=== PATIENT | female | born 1990 | race Caucasian/White ===

== ENCOUNTER 2017-12-28 18:54 | Emergency (ER) | payer OTHER ==
--- NOTE | 2017-12-28 20:11 | XRAY Report ---
EXAM: CHEST RADIOGRAPHY EXAM DATE: 12/28/2017 07:50 PM. CLINICAL HISTORY: Cough. COMPARISON: None. TECHNIQUE: 1 view. FINDINGS: Lungs/Pleura: No focal opacities evident. No pleural effusion. No pneumothorax. Mediastinum: Within exam limitations, the cardiomediastinal contour is normal. Other: No bony abnormality noted. IMPRESSION: Normal single view chest. [facility] Referring Provider Line: [phone] SITE ID: [id number]
[2017-12-28] MEDS ORDERED: cefTRIAXone 1 GM in SODIUM CHLORIDE 0.9% MINIBAG 100 ML IV STA (20:16)
[2017-12-28] MEDS ORDERED: SODIUM CHLORIDE 0.9% 1,000 ML IV ONE (20:16)
[2017-12-28] MEDS ORDERED: ACETAMINOPHEN 325 MG TABLET PO STA (20:16)
--- NOTE | 2017-12-28 20:22 | ED Physician Documentation ---
PD HPI URI - Stated complaint Stated Complaint: SOA/DIZZY - Chief complaint Chief Complaint: Resp - History obtained from History obtained from: Patient, Friend - History of Present Illness Timing - onset: How many weeks ago (1) Timing duration: Weeks (1) Timing details: Gradual onset, Still present Associated symptoms: Fever, Chills, Nasal congestion, Rhinorrhea, Dry cough Contributing factors: Sick contact (daughter sick with BOM) Improves by: Rest, Medication Worsened by: Activity Similar symptoms before: Has not had sx before Recently seen: Not recently seen - Additional information Additional information: 27-year-old female mother of a young 8-month-old daughter who has recently been diagnosed with otitis has developed a cough over the past week that is progressively worsened over the week and today she has developed acute fever and feels quite ill. Review of Systems Constitutional: reports: Fever, Chills, Fatigue Eyes: denies: Decreased vision Ears: denies: Ear pain Nose: reports: Rhinorrhea / runny nose, Congestion Throat: reports: Sore throat Cardiac: denies: Chest pain / pressure, Palpitations Respiratory: reports: Cough. denies: Dyspnea GI: denies: Vomiting Skin: denies: Rash Musculoskeletal: reports: Back pain. denies: Neck pain Neurologic: reports: Generalized weakness. denies: Focal weakness, Numbness PD PAST MEDICAL HISTORY - Past Medical History HAND HARDENER: Ovarian cysts, Other Psych: Depression, Anxiety - Past Surgical History Past Surgical History: Yes /HAND HARDENER: section - Present Medications Home Medications: Ambulatory Orders Medication Instructions Recorded Confirmed Azithromycin [Zithromax] 250 mg PO DAILY #6 tablet 12/28/17 - Allergies Allergies/Adverse Reactions: Allergies Allergy/AdvReac Type Severity Reaction Status Date / Time No Known Drug Allergies Allergy Verified 12/28/17 19:02 - Social History Does the pt smoke?: No Smoking Status: Never smoker Does the pt drink ETOH?: No Does the pt have substance abuse?: No - Immunizations Immunizations are current?: Yes - POLST Patient has POLST: No PD ED PE NORMAL - Vitals Vital signs reviewed: Yes (Febrile tachycardic and hypertensive as well as tachypneic.) - General General: Alert and oriented X 3, No acute distress, Well developed/nourished - HEENT HEENT: Atraumatic, PERRL, EOMI, Other (Right TM is mildly erythematous with retained landmarks left is clear the pharynx is benign) - Neck Neck: Supple, no meningeal sign, No bony TTP - Cardiac Cardiac: No murmur, No rub, Other - Respiratory Respiratory: No respiratory distress, Clear bilaterally - Abdomen Abdomen: Soft, Non tender - Back Back: No CVA TTP, No spinal TTP - Derm Derm: Normal color, Warm and dry, No rash - Extremities Extremities: No deformity, No edema - Neuro Neuro: No motor deficit, No sensory deficit Eye Opening: Spontaneous Motor: Obeys Commands Verbal: Oriented GCS Score: 15 - Psych Psych: Normal mood, Normal affect Results - Vitals Vitals: Vital Signs - 24 hr 12/28/17 12/28/17 18:59 22:00 Temperature 39.4 C H Heart Rate 142 H 120 H Respiratory 24 22 Rate Blood Pressure 134/75 H O2 Saturation 98 Oxygen O2 Source Room air - Labs Labs: Laboratory Tests 12/28/17 12/28/17 12/28/17 20:31 20:31 20:32 WBC 15.2 H RBC 4.78 Hgb 13.6 Hct 39.9 MCV 83.5 MCH 28.5 MCHC 34.1 RDW 13.0 Plt Count 239 MPV 7.1 L Neut # 13.3 H Lymph # 1.2 L [place] # 0.6 Eos # 0.1 Baso # 0.0 Absolute Nucleated RBC 0.01 Nucleated RBC % 0.0 Sodium 137 Potassium 3.5 Chloride 106 Carbon Dioxide 22 Anion Gap 9.0 BUN 13 Creatinine 0.7 Estimated GFR (MDRD) 99 Glucose 114 H Calcium 8.6 Total Bilirubin 0.2 AST 29 ALT 46 Alkaline Phosphatase 61 Total Protein 8.0 Albumin 4.1 Globulin 3.9 Albumin/Globulin Ratio 1.1 Lipase 26 Urine Color YELLOW Urine Clarity CLEAR Urine pH 7.0 Ur Specific [place] 1.020 Urine Protein NEGATIVE Urine Glucose (UA) NEGATIVE Urine Ketones NEGATIVE Urine Occult Blood NEGATIVE Urine Nitrite NEGATIVE Urine Bilirubin NEGATIVE Urine Urobilinogen 0.2 (NORMAL) Ur Leukocyte Esterase NEGATIVE Ur Microscopic Review NOT INDICATED Urine Culture Comments NOT INDICATED Urine HCG, Qual NEGATIVE Influenza A (Rapid) Influenza B (Rapid) Influenza Types A,B Ag 12/28/17 20:35 WBC RBC Hgb Hct MCV MCH MCHC RDW Plt Count MPV Neut # Lymph # [place] # Eos # Baso # Absolute Nucleated RBC Nucleated RBC % Sodium Potassium Chloride Carbon Dioxide Anion Gap BUN Creatinine Estimated GFR (MDRD) Glucose Calcium Total Bilirubin AST ALT Alkaline Phosphatase Total Protein Albumin Globulin Albumin/Globulin Ratio Lipase Urine Color Urine Clarity Urine pH Ur Specific [place] Urine Protein Urine Glucose (UA) Urine Ketones Urine Occult Blood Urine Nitrite Urine Bilirubin Urine Urobilinogen Ur Leukocyte Esterase Ur Microscopic Review Urine Culture Comments Urine HCG, Qual Influenza A (Rapid) Negative Influenza B (Rapid) Negative Influenza Types A,B Ag - - Rads (name of study) 1 view chest Radiology: Prelim report reviewed (Impression: Normal single view chest), EMP read indepedently (On my read the right base is a bit hazy.), See rad report Procedures - IVC sono (time) 1909 Bedside IVC sono: IVC measures (cm) (0.88), IVC collapsed c insp (cm) (complete) , Significant dehydration PD MEDICAL DECISION MAKING - ED course Complexity details: reviewed old records, reviewed results, re-evaluated patient , considered differential, d/w patient ED course: 27-year-old female with a febrile illness with cough and congestion has right otitis and now has developed high fever significant tachycardia and is significantly dehydrated. She is given intravenous saline and Rocephin. Departure - Departure Disposition: 01 Home, Self Care Clinical Impression: Dehydration Otitis media Qualifiers: Otitis media type: suppurative Chronicity: acute Laterality: right Recurrence: not specified as recurrent Spontaneous tympanic membrane rupture: without spontaneous rupture Qualified Code(s): H66.001 - Acute suppurative otitis media without spontaneous rupture of ear drum, right ear Condition: Stable Instructions: ED Otitis Media Acute Adult, ED Dehydration Follow-Up: [facility] [Provider Group] Prescriptions: Azithromycin [Zithromax] 250 mg PO DAILY #6 tablet
[2017-12-28 20:38] LABS: BASOPHILS % (AUTO) 0.2 %; EOSINOPHILS # (AUTO) 0.1 10^3/uL (0.0-0.7); EOSINOPHILS % (AUTO) 0.6 %; HGB - HEMOGLOBIN 13.6 g/dL (12.0-16.0); LYMPHOCYTES # (AUTO) 1.2 10^3/uL (1.5-3.5); MEAN CORPUSCULAR HEMOGLOBIN 28.5 pg (27.0-31.0); MEAN CORPUSCULAR HGB CONC 34.1 g/dL (32.0-36.0); MEAN CORPUSCULAR VOLUME 83.5 fL (81.0-99.0); MEAN PLATELET VOLUME 7.1 fL (7.9-10.8); MONOCYTES # (AUTO) 0.6 10^3/uL (0.0-1.0); MONOCYTES % (AUTO) 3.6 %; NEUTROPHILS # (AUTO) 13.3 10^3/uL (1.5-6.6); NEUTROPHILS % (AUTO) 87.6 %; PLT - PLATELET COUNT 239 10^3/uL (130-450); RED BLOOD COUNT 4.78 10^6/uL (4.20-5.40); WHITE BLOOD COUNT 15.2 x10^3/uL (4.8-10.8)
[2017-12-28 20:52] LABS: BILIRUBIN,URINE NEGATIVE (NEGATIVE); GLUCOSE, URINE (UA) NEGATIVE (NEGATIVE); KETONES,URINE (UA) NEGATIVE (NEGATIVE); LEUKOCYTE ESTERASE, URINE NEGATIVE (NEGATIVE); NITRITE,URINE NEGATIVE (NEGATIVE); OCCULT BLOOD,URINE NEGATIVE (NEGATIVE); PROTEIN,URINE NEGATIVE (NEGATIVE); UROBILINOGEN,URINE 0.2 (NORMAL) E.U./dL (NORMAL)
[2017-12-28 20:53] LABS: ALBUMIN 4.1 g/dL (3.2-5.5); ALBUMIN/GLOBULIN RATIO 1.1 (1.0-2.2); BILIRUBIN,TOTAL 0.2 mg/dL (0.2-1.0); CALCIUM 8.6 mg/dL (8.5-10.3); CREATININE 0.7 mg/dL (0.4-1.0)
[2017-12-28 20:56] LABS: CLARITY,URINE CLEAR (CLEAR); HCG UR QUAL NEGATIVE
[2017-12-28] MEDS ORDERED: IPRATROPIUM/ALBUTEROL 3 ML NEB INH STA (22:04)
[2017-12-28 23:16] VITALS: BP 142/77
== END 2017-12-28 23:29 | disposition home or self-care (01) ==
LOC: ED 18:54
DX: E86.0 Dehydration (principal); H66.001 Acute suppurative otitis media without spontaneous rupture of ear drum, right ear
CPT/HCPCS: 36415; 71045; 80053; 81003; 81025; 83690; 85025; 87275; 87276; 94640; 96361; 96365; 99283; 99284; A9270; 81001; 87086

== ENCOUNTER 2018-06-24 20:18 | Emergency (ER) | payer OTHER ==
[2018-06-24 20:25] VITALS: BP 151/91
[2018-06-24] MEDS ORDERED: IBUPROFEN 800 MG TABLET PO STA (20:56)
[2018-06-24] MEDS ORDERED: cephALEXin 250 MG CAPSULE PO STA (20:56)
--- NOTE | 2018-06-24 20:58 | ED Physician Documentation ---
History of Present Illness - Stated complaint Stated Complaint: FEVER - Chief complaint Chief Complaint: General - History obtained from History obtained from: Patient - History of Present Illness Timing: Today Pain level max: 5 Pain level now: 5 Improved by: nothing Worsened by: nothing - Additonal information Additional information: Patient is a 27-year-old female who presents to the emergency department with fever today. She is breast-feeding a [id number] child. Has pain and redness to the right breast. No vomiting. No abdominal pain also has had mild nasal congestion. No sore throat Review of Systems Constitutional: reports: Fever Respiratory: denies: Cough GI: denies: Vomiting, Diarrhea : denies: Now EGA Skin: denies: Rash Musculoskeletal: denies: Neck pain, Back pain PD PAST MEDICAL HISTORY - Past Medical History Cardiovascular: None Respiratory: None Neuro: None Endocrine/Autoimmune: None GI: None MANAGER APPLIED: Ovarian cysts, Other : None HEENT: None Psych: Depression, Anxiety Musculoskeletal: None Derm: None - Past Surgical History Past Surgical History: Yes /MANAGER APPLIED: section - Present Medications Home Medications: Ambulatory Orders Medication Instructions Recorded Confirmed Cephalexin [Keflex] 500 mg PO Q6H #40 capsule 06/24/18 Lactobacillus Acidophilus 1.5 mg PO DAILY #7 capsule 06/24/18 [Probiotic Acidophilus] - Allergies Allergies/Adverse Reactions: Allergies Allergy/AdvReac Type Severity Reaction Status Date / Time No Known Drug Allergies Allergy Verified 06/24/18 20:25 - Social History Does the pt smoke?: No Smoking Status: Never smoker Does the pt drink ETOH?: No Does the pt have substance abuse?: No - Immunizations Immunizations are current?: Yes - POLST Patient has POLST: No PD ED PE NORMAL - Vitals Vital signs reviewed: Yes - General General: Alert and oriented X 3, No acute distress - HEENT HEENT: Moist mucous membranes - Neck Neck: Supple, no meningeal sign - Cardiac Cardiac: RRR - Respiratory Respiratory: No respiratory distress, Clear bilaterally - Derm Derm: Warm and dry - Neuro Neuro: Alert and oriented X 3 - Free text exam Free text exam: R breast - mild redness, swelling, and tenderness. no mass. L breast normal. Results - Vitals Vitals: Vital Signs - 24 hr 06/24/18 20:22 Temperature 37.3 C Heart Rate 103 H Respiratory 16 Rate Blood Pressure 151/91 H O2 Saturation 99 Oxygen O2 Source Room air PD MEDICAL DECISION MAKING - ED course Complexity details: reviewed results, re-evaluated patient, considered differential, d/w patient, d/w family ED course: Patient is a 27-year-old female who presents to the emergency department with a right-sided mastitis. Will place on Keflex. Will have her follow-up with her PCP for further care. Also given Motrin here. Patient is well-appearing, nontoxic. Patient counseled regarding signs and symptoms for which I believe and urgent re-evaluation would be necessary. Patient with good understanding of and agreement to plan and is comfortable going home at this time This document was made in part using voice recognition software. While efforts are made to proofread this document, sound alike and grammatical errors may occur. - Sepsis Event Vital Signs: Vital Signs - 24 hr 06/24/18 20:22 Temperature 37.3 C Heart Rate 103 H Respiratory 16 Rate Blood Pressure 151/91 H O2 Saturation 99 Oxygen O2 Source Room air Departure - Departure Disposition: 01 Home, Self Care Clinical Impression: Mastitis Condition: Good Instructions: ED Breast Infec Follow-Up: [facility] [Primary Care Provider] - Prescriptions: Cephalexin [Keflex] 500 mg PO Q6H #40 capsule Lactobacillus Acidophilus [Probiotic Acidophilus] 1.5 mg PO DAILY #7 capsule Comments: Take all antibiotics until gone. Return if you worsen. This should improve over the next few days. You can use Motrin or Tylenol as needed for pain and fever Discharge Date/Time: 06/24/18 21:11
== END 2018-06-24 21:11 | disposition home or self-care (01) ==
LOC: ED 20:18
DX: N61.0 Mastitis without abscess (principal)
CPT/HCPCS: 99283; A9270

== ENCOUNTER 2018-11-08 09:38 | Emergency (ER) | payer OTHER ==
[2018-11-08 10:02] VITALS: BP 125/81
--- NOTE | 2018-11-08 10:46 | ED Physician Documentation ---
PD HPI URI - Stated complaint Stated Complaint: SORE THROAT - Chief complaint Chief Complaint: Heent - History obtained from History obtained from: Patient - History of Present Illness Timing - onset: Today Timing duration: Days (1) Timing details: Abrupt onset, Still present Associated symptoms: Sore throat. No: Fever, Swollen nodes Contributing factors: Sick contact (had been in contact with family that is yesterday Dx with strep throat.) Similar symptoms before: Has not had sx before Recently seen: Not recently seen Review of Systems Constitutional: denies: Fever Nose: denies: Rhinorrhea / runny nose, Congestion Throat: reports: Sore throat Respiratory: denies: Dyspnea GI: reports: Nausea (mild). 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: Ovarian cysts, Other : None HEENT: None Psych: Depression, Anxiety Musculoskeletal: None Derm: None - Past Surgical History Past Surgical History: Yes /STRUCTURAL MANAGER: section - Present Medications Home Medications: Ambulatory Orders Medication Instructions Recorded Confirmed No Known Home Medications 11/08/18 11/08/18 - Allergies Allergies/Adverse Reactions: Allergies Allergy/AdvReac Type Severity Reaction Status Date / Time No Known Drug Allergies Allergy Verified 11/08/18 10:02 - Social History Does the pt smoke?: No Smoking Status: Never smoker Does the pt drink ETOH?: No Does the pt have substance abuse?: No - Immunizations Immunizations are current?: Yes - POLST Patient has POLST: No PD ED PE NORMAL - Vitals Vital signs reviewed: Yes - General General: Alert and oriented X 3, No acute distress, Well developed/nourished - HEENT HEENT: Ears normal, Pharynx benign - Neck Neck: Supple, no meningeal sign, No adenopathy - Cardiac Cardiac: RRR, No murmur - Respiratory Respiratory: Clear bilaterally - Derm Derm: Normal color, Warm and dry, No rash - Neuro Neuro: Alert and oriented X 3, Normal speech Results - Vitals Vitals: Vital Signs - 24 hr 11/08/18 09:59 Temperature 36.3 C L Heart Rate 92 Respiratory 14 Rate Blood Pressure 125/81 H O2 Saturation 98 Oxygen O2 Source Room air - Labs Labs: Laboratory Tests 11/08/18 10:00 Group A Strep Rapid Negative PD MEDICAL DECISION MAKING - ED course Complexity details: reviewed results (rapid test neg and her kids rapid test also neg. Presume viral with low prob clinical exam), considered differential, d/w patient Departure - Departure Disposition: Home, Self Care Clinical Impression: Sore throat (viral) Condition: Stable Record reviewed to determine appropriate education?: Yes Instructions: ED Pharyngitis Viral Follow-Up: [facility] [Primary Care Provider] - Comments: Your throat looks normal and your rapid strep test is negative so I would say it sounds viral at this time. If the symptoms change or worsen then recheck over the next couple of days. Discharge Date/Time: 11/08/18 11:14
== END 2018-11-08 11:14 | disposition home or self-care (01) ==
LOC: ED 09:38
DX: J02.8 Acute pharyngitis due to other specified organisms (principal)
CPT/HCPCS: 87070; 87430; 99282; 99283

== ENCOUNTER 2019-03-22 17:07 | Emergency (ER) | payer OTHER ==
[2019-03-22 17:51] LABS: BASOPHILS % (AUTO) 0.6 %; EOSINOPHILS # (AUTO) 0.1 10^3/uL (0.0-0.7); EOSINOPHILS % (AUTO) 1.5 %; HGB - HEMOGLOBIN 14.3 g/dL (12.0-16.0); LYMPHOCYTES # (AUTO) 2.7 10^3/uL (1.5-3.5); LYMPHOCYTES % (AUTO) 33.4 %; MEAN CORPUSCULAR HEMOGLOBIN 28.8 pg (27.0-31.0); MEAN CORPUSCULAR HGB CONC 33.8 g/dL (32.0-36.0); MEAN CORPUSCULAR VOLUME 85.2 fL (81.0-99.0); MEAN PLATELET VOLUME 7.3 fL (7.9-10.8); MONOCYTES # (AUTO) 0.4 10^3/uL (0.0-1.0); MONOCYTES % (AUTO) 5.2 %; NEUTROPHILS # (AUTO) 4.9 10^3/uL (1.5-6.6); NEUTROPHILS % (AUTO) 59.3 %; PLT - PLATELET COUNT 289 10^3/uL (130-450); RED BLOOD COUNT 4.95 10^6/uL (4.20-5.40); WHITE BLOOD COUNT 8.2 x10^3/uL (4.8-10.8)
--- NOTE | 2019-03-22 18:00 | ED Physician Documentation ---
<Victorina Alejandra - Last Filed: 03/22/19 17:58> PD HPI FEMALE - Stated complaint Stated Complaint: ABD CRAMPING/ - Chief complaint Chief Complaint: Abd Pain - History obtained from History obtained from: Patient - History of Present Illness Timing - onset: How many days ago (2-3) Timing - duration: Days Timing - details: Abrupt onset Pain level max: 3 Pain level max: 3 Severity Comments: moderate initially but improving Associated symptoms: Vaginal bleeding. 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 No: Miscarriage(s), Prior ectopic Similar symptoms before: Has not had sx before Recently seen: Clinic (sent to the ED today) - Treatment prior to arrival Treatment prior to arrival: none Review of Systems Ten Systems: 10 systems reviewed and negative Constitutional: denies: Fever, Chills Cardiac: denies: Palpitations GI: reports: Abdominal Pain. denies: Nausea, Vomiting : reports: Vaginal bleeding. denies: Dysuria, Frequency, Hesitancy Neurologic: reports: Other (not dizzy). 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 MACHINE OPERATOR: Ovarian cysts, Other : None HEENT: None Psych: Depression, Anxiety Musculoskeletal: None Derm: None - Past Surgical History Past Surgical History: Yes /SNUFF PACKING MACHINE OPERATOR: section - Present Medications Home Medications: Ambulatory Orders Medication Instructions Recorded Confirmed No Known Home Medications 11/08/18 11/08/18 - Allergies Allergies/Adverse Reactions: Allergies Allergy/AdvReac Type Severity Reaction Status Date / Time No Known Drug Allergies Allergy Verified 03/22/19 17:23 - Social History Does the pt smoke?: No Smoking Status: Never smoker Does the pt drink ETOH?: No Does the pt have substance abuse?: No - Immunizations Immunizations are current?: Yes - POLST Patient has POLST: No PD ED PE NORMAL - Vitals Vital signs reviewed: Yes - General General: Alert and oriented X 3 - HEENT HEENT: Atraumatic - Neck Neck: Supple, no meningeal sign - Cardiac Cardiac: RRR - Respiratory Respiratory: No respiratory distress - Abdomen Abdomen: Soft, Non tender, Non distended - Rectal Rectal: Deferred - Back Back: No spinal TTP - Derm Derm: Normal color, Warm and dry, No rash - Neuro Neuro: Alert and oriented X 3 Eye Opening: Spontaneous Motor: Obeys Commands Verbal: Oriented GCS Score: 15 Results - Labs Labs: normal cell counts PD MEDICAL DECISION MAKING - ED course Complexity details: considered differential, d/w patient ED course: DDx - ectopic , threatened or incomplete 28 y/o F with positive test thought she was on her period. Has had bleeding for 2-3 days and cramping, both improving, now mainly with spotting. , hx of PCOS. Abdomen soft and benign, no obvious free fluid or IUP on bedside US. Will obtain radiology US and labs. Pt signed out to Dr. Leong. Departure - Departure Disposition: 01 Home, Self Care Clinical Impression: Threatened in early Condition: Good Instructions: ED Miscarriage Poss Follow-Up: [facility] [Provider Group] Comments: Contact the OB clinic on the [facility] tomorrow you need a repeat quantitative hCG to see if its rising or falling in about 48 hours. Discharge Date/Time: 03/22/19 21:06 <Anna Leong - Last Filed: 03/22/19 23:43> Results - Vitals Vitals: Vital Signs - 24 hr 03/22/19 03/22/19 03/22/19 17:21 19:27 21:05 Temperature 36.6 C Heart Rate 84 86 72 Respiratory 18 14 16 Rate Blood Pressure 149/99 H 134/87 H 132/78 H O2 Saturation 99 99 99 Oxygen O2 Source Room air - Labs Labs: Laboratory Tests 03/22/19 03/22/19 03/22/19 17:44 17:44 17:44 WBC 8.2 RBC 4.95 Hgb 14.3 Hct 42.2 MCV 85.2 MCH 28.8 MCHC 33.8 RDW 13.0 Plt Count 289 MPV 7.3 L Neut # (Auto) 4.9 Lymph # (Auto) 2.7 [place] # (Auto) 0.4 Eos # (Auto) 0.1 Baso # (Auto) 0.0 Absolute Nucleated RBC 0.00 Nucleated RBC % 0.0 Sodium 141 Potassium 3.8 Chloride 107 Carbon Dioxide 23 Anion Gap 11.0 BUN 9 Creatinine 0.7 Estimated GFR (MDRD) 98 Glucose 98 Calcium 9.2 Total Bilirubin 0.5 AST 32 ALT 38 Alkaline Phosphatase 57 Total Protein 7.5 Albumin 4.3 Globulin 3.2 Albumin/Globulin Ratio 1.3 HCG, Quant 70.85 Blood Type Antibody Screen 03/22/19 18:53 WBC RBC Hgb Hct MCV MCH MCHC RDW Plt Count MPV Neut # (Auto) Lymph # (Auto) [place] # (Auto) Eos # (Auto) Baso # (Auto) Absolute Nucleated RBC Nucleated RBC % Sodium Potassium Chloride Carbon Dioxide Anion Gap BUN Creatinine Estimated GFR (MDRD) Glucose Calcium Total Bilirubin AST ALT Alkaline Phosphatase Total Protein Albumin Globulin Albumin/Globulin Ratio HCG, Quant Blood Type B POSITIVE Antibody Screen NEGATIVE PD MEDICAL DECISION MAKING - ED course ED course: Addendum was dictated regarding the patient's ultrasound and quantitative hCG of only 70. She was discharged home for outpatient follow-up.
[2019-03-22 18:02] LABS: ALBUMIN 4.3 g/dL (3.2-5.5); ALBUMIN/GLOBULIN RATIO 1.3 (1.0-2.2); BILIRUBIN,TOTAL 0.5 mg/dL (0.2-1.0); CALCIUM 9.2 mg/dL (8.5-10.3); CREATININE 0.7 mg/dL (0.4-1.0); TOTAL PROTEIN 7.5 g/dL (6.7-8.2)
--- NOTE | 2019-03-22 19:17 | Ultrasound Report ---
Reason: eval for ectopic Procedure Date: 03/22/2019 Accession Number: [id number] / [id number] Procedure: US - OB First Trimester CPT Code: FULL RESULT: EXAM: FIRST TRIMESTER OBSTETRIC ULTRASOUND (Less than 11 weeks) EXAM DATE: 03/22/2019 06:13 PM. CLINICAL HISTORY: Eval for ectopic. LMP: 03/10/2019. COMPARISONS: OB FIRST TRIMESTER 09/01/2016 6:34 PM. TECHNIQUE: Transabdominal and transvaginal ultrasound examination with static image documentation. CLINICAL DATES: EGA 1 week 5 days with VIDHI 12/15/2019 based on LMP. ASSESSMENT: Gestational Sac: Not visualized. MATERNAL STRUCTURES: Uterus: Retroverted. Unremarkable. The endometrial stripe measures 8 mm in thickness. Cervix: Closed. Right Ovary/Adnexa: The ovary measures 2.9 x 2.4 x 3.6 cm, volume 13.1 cc. Unremarkable. Left Ovary/Adnexa: The ovary measures 2.8 x 2.6 x 2.4 cm, volume 9.4 cc. Unremarkable. Free Fluid: None. Other: None. IMPRESSION: No intrauterine visualized. In the setting of a positive test, this would represent a of indeterminate location. Ectopic not entirely excluded. Very early intrauterine also a possibility. Recommend continued surveillance of serial quantitative beta hCG with short-term follow-up imaging. [facility]
--- NOTE | 2019-03-22 20:56 | ED Physician Documentation ---
ED Addendum - Addendum Addendum: 03/22/19 20:55 Care of this patient was turned over to me by Dr. Alejandra. Her quantitative hCG was only 70. She was Rh+. The ultrasound did not show anything intrauterine but with a hCG of only 70 am not surprised. Patient has not yet established OB care. She is good to contact the [facility] clinic tomorrow because she will need a repeat quantitative in 2 days. She is not a candidate for RhoGam.
[2019-03-22 21:06] VITALS: BP 132/78
== END 2019-03-22 21:06 | disposition home or self-care (01) ==
LOC: ED 17:07
DX: O20.0 Threatened abortion (principal); Z3A.01 Less than 8 weeks gestation of pregnancy
CPT/HCPCS: 36415; 76801; 76817; 80053; 84702; 85025; 86850; 86900; 86901; 99283

== ENCOUNTER 2019-04-03 19:46 | Emergency (ER) | payer OTHER ==
--- NOTE | 2019-04-03 21:00 | ED Physician Documentation ---
PD HPI FEMALE - Stated complaint Stated Complaint: S/P METHOTREXATE INFUSION, PAIN - Chief complaint Chief Complaint: Abd Pain - History obtained from History obtained from: Patient - History of Present Illness Timing - onset: Enter time (19:00), Today Timing - details: Gradual onset, Waxing and waning Pain level max: 5 Associated symptoms: Pelvic pain, Vaginal bleeding. No: Fever Contributing factors: (ectopic) Recently seen: Clinic, Emergency Dept - Additional information Additional information: Patient has had vaginal bleeding for the past three weeks. She was treated and released from this emergency department earlier this month but no IUP was seen on ultrasound. She has been following up with her [employer], and her hCG values went from 70 to 226 to 95 to 89 to 254. yesterday, her ultrasound showed an ab normality on her left ovary, and it was decided to give methotrexate for suspected ectopic . She was continuing to have vaginal bleeding, but tonight she developed left pelvic pain and was told to go to emergency department should she develop any pain. Review of Systems Constitutional: reports: Reviewed and negative Cardiac: reports: Reviewed and negative Respiratory: reports: Reviewed and negative GI: reports: Reviewed and negative : reports: Now EGA, Other (pelvic pain). denies: Dysuria, Frequency PD PAST MEDICAL HISTORY - Past Medical History Past Medical History: Yes Cardiovascular: None Respiratory: None Neuro: None Endocrine/Autoimmune: None GI: None BAND TUMBLER: Ovarian cysts, Miscarriage(s), Other : None HEENT: None Psych: Depression, Anxiety Musculoskeletal: None Derm: None - Past Surgical History Past Surgical History: Yes /BAND TUMBLER: section - Present Medications Home Medications: Ambulatory Orders Medication Instructions Recorded Confirmed Hydrocodone/Acetaminophen 1 - 2 each PO Q6H PRN #10 tablet 04/03/19 [Hydrocodon-Acetaminophen 5-325] - Allergies Allergies/Adverse Reactions: Allergies Allergy/AdvReac Type Severity Reaction Status Date / Time No Known Drug Allergies Allergy Verified 03/22/19 17:23 - Social History Does the pt smoke?: No Smoking Status: Never smoker Does the pt drink ETOH?: No Does the pt have substance abuse?: No - Immunizations Immunizations are current?: Yes - POLST Patient has POLST: No PD ED PE NORMAL - Vitals Vital signs reviewed: Yes - General General: Alert and oriented X 3, No acute distress, Well developed/nourished - Cardiac Cardiac: RRR, No murmur - Respiratory Respiratory: No respiratory distress, Clear bilaterally - Abdomen Abdomen: Soft, Non tender, Non distended Results - Vitals Vitals: Oxygen O2 Source Room air - Labs Labs: Laboratory Tests 04/03/19 04/03/19 04/03/19 20:50 20:50 20:50 WBC 8.6 RBC 4.69 Hgb 13.7 Hct 40.4 MCV 86.3 MCH 29.3 MCHC 33.9 RDW 13.0 Plt Count 255 MPV 7.5 L Neut # (Auto) 5.8 Lymph # (Auto) 2.2 [place] # (Auto) 0.5 Eos # (Auto) 0.1 Baso # (Auto) 0.0 Absolute Nucleated RBC 0.01 Nucleated RBC % 0.1 Sodium 138 Potassium 4.0 Chloride 103 Carbon Dioxide 26 Anion Gap 9.0 BUN 13 Creatinine 0.7 Estimated GFR (MDRD) 98 Glucose 101 H Calcium 9.0 Total Bilirubin 0.8 AST 52 H ALT 72 H Alkaline Phosphatase 48 Total Protein 7.5 Albumin 3.9 Globulin 3.6 Albumin/Globulin Ratio 1.1 Lipase 38 HCG, Quant Urine Color Urine Clarity Urine pH Ur Specific [place] Urine Protein Urine Glucose (UA) Urine Ketones Urine Occult Blood Urine Nitrite Urine Bilirubin Urine Urobilinogen Ur Leukocyte Esterase Urine RBC Urine WBC Ur Squamous Epith Cells Urine Bacteria Ur Microscopic Review Urine Culture Comments Blood Type B POSITIVE Antibody Screen NEGATIVE 04/03/19 04/03/19 20:50 20:50 WBC RBC Hgb Hct MCV MCH MCHC RDW Plt Count MPV Neut # (Auto) Lymph # (Auto) [place] # (Auto) Eos # (Auto) Baso # (Auto) Absolute Nucleated RBC Nucleated RBC % Sodium Potassium Chloride Carbon Dioxide Anion Gap BUN Creatinine Estimated GFR (MDRD) Glucose Calcium Total Bilirubin AST ALT Alkaline Phosphatase Total Protein Albumin Globulin Albumin/Globulin Ratio Lipase HCG, Quant 178.61 Urine Color DARK YELLOW Urine Clarity CLOUDY Urine pH 5.5 Ur Specific [place] >=1.030 H Urine Protein TRACE Urine Glucose (UA) NEGATIVE Urine Ketones NEGATIVE Urine Occult Blood LARGE H Urine Nitrite NEGATIVE Urine Bilirubin NEGATIVE Urine Urobilinogen 0.2 (NORMAL) Ur Leukocyte Esterase NEGATIVE Urine RBC TNTC H Urine WBC 0-3 Ur Squamous Epith Cells FEW Squamous Urine Bacteria Few Ur Microscopic Review INDICATED Urine Culture Comments NOT INDICATED Blood Type Antibody Screen - Rads (name of study) pelvic/TV US Radiology: Prelim report reviewed, See rad report PD MEDICAL DECISION MAKING - ED course Complexity details: reviewed results, re-evaluated patient, considered differential, d/w patient ED course: D/W Dr. 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), recommends d/c home if hemodynamically stable and no findings s/o ectopic rupture/ bleeding on US Departure - Departure Disposition: Home, Self Care Clinical Impression: Ectopic Condition: Good Instructions: ED Preg Ectopic Methotrexate Tx Follow-Up: [facility] [Provider Group] Prescriptions: Hydrocodone/Acetaminophen [Hydrocodon-Acetaminophen 5-325] 1 - 2 each PO Q6H PRN #10 tablet PRN Reason: pain Discharge Date/Time: 04/03/19 23:53
[2019-04-03 21:01] LABS: GLUCOSE, URINE (UA) NEGATIVE (NEGATIVE); KETONES,URINE (UA) NEGATIVE (NEGATIVE); LEUKOCYTE ESTERASE, URINE NEGATIVE (NEGATIVE); NITRITE,URINE NEGATIVE (NEGATIVE); OCCULT BLOOD,URINE LARGE (NEGATIVE); PH,URINE 5.5 PH (5.0-7.5); PROTEIN,URINE TRACE mg/dL (NEGATIVE); UROBILINOGEN,URINE 0.2 (NORMAL) E.U./dL (NORMAL)
[2019-04-03 21:04] LABS: BASOPHILS % (AUTO) 0.4 %; EOSINOPHILS # (AUTO) 0.1 10^3/uL (0.0-0.7); EOSINOPHILS % (AUTO) 1.6 %; HGB - HEMOGLOBIN 13.7 g/dL (12.0-16.0); LYMPHOCYTES # (AUTO) 2.2 10^3/uL (1.5-3.5); LYMPHOCYTES % (AUTO) 25.2 %; MEAN CORPUSCULAR HEMOGLOBIN 29.3 pg (27.0-31.0); MEAN CORPUSCULAR HGB CONC 33.9 g/dL (32.0-36.0); MEAN CORPUSCULAR VOLUME 86.3 fL (81.0-99.0); MEAN PLATELET VOLUME 7.5 fL (7.9-10.8); MONOCYTES # (AUTO) 0.5 10^3/uL (0.0-1.0); MONOCYTES % (AUTO) 5.5 %; NEUTROPHILS # (AUTO) 5.8 10^3/uL (1.5-6.6); NEUTROPHILS % (AUTO) 67.3 %; PLT - PLATELET COUNT 255 10^3/uL (130-450); RED BLOOD COUNT 4.69 10^6/uL (4.20-5.40); WHITE BLOOD COUNT 8.6 x10^3/uL (4.8-10.8)
[2019-04-03 21:15] LABS: ALBUMIN 3.9 g/dL (3.2-5.5); ALBUMIN/GLOBULIN RATIO 1.1 (1.0-2.2); BILIRUBIN,TOTAL 0.8 mg/dL (0.2-1.0); BILIRUBIN,URINE NEGATIVE (NEGATIVE); CLARITY,URINE CLOUDY (CLEAR); CREATININE 0.7 mg/dL (0.4-1.0); ICTOTEST,URINE NEGATIVE; TOTAL PROTEIN 7.5 g/dL (6.7-8.2)
[2019-04-03 21:19] LABS: BACTERIA,URINE Few /HPF (None Seen); RBC,URINE TNTC /HPF (0-5); SQUAMOUS EPITHELIAL CELL,UR FEW Squamous (<= Few)
[2019-04-03] MEDS ORDERED: HYDROcod/ACETAM 5/325 MG TABLET PO STA (21:47)
--- NOTE | 2019-04-03 23:16 | Ultrasound Report ---
Reason: pelvic pain, ectopic w/methotrexate yesterday Procedure Date: 04/03/2019 Accession Number: [id number] / [id number] Procedure: US - OB First Trimester CPT Code: FULL RESULT: EXAM: FIRST TRIMESTER OBSTETRIC ULTRASOUND (Less than 11 weeks) EXAM DATE: 04/03/2019 10:04 PM. CLINICAL HISTORY: Pelvic pain. Ectopic w/methotrexate yesterday. LMP: 02/09/2019. COMPARISONS: OB FIRST TRIMESTER 03/22/2019 6:13 PM. TECHNIQUE: Transabdominal and transvaginal ultrasound examination with static image documentation. CLINICAL DATES: EGA 7 weeks 4 days with VIDHI 12/15/2019 based on LMP. ASSESSMENT: Gestational Sac: None visualized. Embryo: None visualized. Cardiac activity: None visualized. Yolk sac: None visualized. MATERNAL STRUCTURES: Uterus: Retroverted. Unremarkable, 9.4 x 4.2 x 6.6 cm, 147.1 cc volume. Cervix: Closed, with a thickness of 5 mm. Right Ovary/Adnexa: The ovary measures 3.0 x 2.1 x 2.0 cm, volume 6.3 cc. Unremarkable. Largest follicle measures 1.4 x 1.2 cm. Left Ovary/Adnexa: The ovary measures 3.0 x 2.4 x 1.9 cm, volume 7.2 cc. Unremarkable. Corpus luteum noted 2.0 x 1.8 x 1.9 cm. Free Fluid: None. Other: Left adnexal soft tissue thickening, 1.3 cm thick. No associated hyperemia. IMPRESSION: 1. Unremarkable uterus with no endometrial fluid collection or mass. 2. Unremarkable ovaries. 3. Left adnexal 1.3 cm soft tissue thickening, possibly thickened fallopian tube. 4. No free fluid. RADIA
[2019-04-03] MEDS ORDERED: HYDROcod/ACET 5/325 Prepack 4 PO STA (23:39)
[2019-04-03 23:54] VITALS: BP 116/81
== END 2019-04-03 23:53 | disposition home or self-care (01) ==
LOC: ED 19:46
DX: O00.102 Left tubal pregnancy without intrauterine pregnancy (principal); N83.12 Corpus luteum cyst of left ovary
CPT/HCPCS: 36415; 76801; 76817; 80053; 81001; 83690; 84702; 85025; 86850; 86900; 86901; 99283; A9270; 81003; 87086

== ENCOUNTER 2019-08-22 12:44 | Emergency (ER) | payer OTHER ==
--- NOTE | 2019-08-22 13:08 | ED Physician Documentation ---
PD HPI FEMALE - Stated complaint Stated Complaint: FEM - Chief complaint Chief Complaint: Abd Pain - History obtained from History obtained from: Patient - History of Present Illness Timing - onset: Today Timing - duration: Hours Timing - details: Abrupt onset, Still present Associated symptoms: Vaginal bleeding Contributing factors: OB-[employer] History: G (4), P (2), Prior ectopic (1) Similar symptoms before: Diagnosis (ectopic) Recently seen: Clinic - Additional information Additional information: 29-year-old female who has had an ectopic in March of this year has become again. She is about 5 to 6 weeks and she has been followed by the [employer] service at [facility]. She has had rising quantitative hCG in a normal fashion and today she is developed some vaginal bleeding. She was asked to come to the emergency department should she have bleeding and she is present here today. She has not had a ultrasound on this . Review of Systems Constitutional: denies: Fever Ears: denies: Ear pain Nose: denies: Congestion Throat: denies: Sore throat Respiratory: denies: Cough GI: denies: Vomiting : reports: Vaginal bleeding. denies: Dysuria PD PAST MEDICAL HISTORY - Past Medical History Cardiovascular: None Respiratory: None Neuro: None Endocrine/Autoimmune: None GI: None [employer]: Ovarian cysts, Miscarriage(s), Other : None HEENT: None Psych: Depression, Anxiety Musculoskeletal: None Derm: None - Past Surgical History Past Surgical History: Yes /[employer]: section - Present Medications Home Medications: Ambulatory Orders Medication Instructions Recorded Confirmed No Known Home Medications 08/22/19 08/22/19 - Allergies Allergies/Adverse Reactions: Allergies Allergy/AdvReac Type Severity Reaction Status Date / Time No Known Drug Allergies Allergy Verified 08/22/19 12:50 - Social History Does the pt smoke?: No Smoking Status: Never smoker Does the pt drink ETOH?: No Does the pt have substance abuse?: No - Immunizations Immunizations are current?: Yes - POLST Patient has POLST: No PD ED PE NORMAL - Vitals Vital signs reviewed: Yes (hypertension) - General General: Alert and oriented X 3, No acute distress, Well developed/nourished - HEENT HEENT: Atraumatic, PERRL, EOMI - Respiratory Respiratory: No respiratory distress - Abdomen Abdomen: Soft, Non tender - Back Back: No CVA TTP, No spinal TTP - Derm Derm: Normal color, Warm and dry, No rash - Extremities Extremities: No deformity, No edema - Neuro Neuro: Alert and oriented X 3, 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, No motor deficit, No sensory deficit, Normal speech Eye Opening: Spontaneous Motor: Obeys Commands Verbal: Oriented GCS Score: 15 - Psych Psych: Normal mood, Normal affect Results - Vitals Vitals: Vital Signs - 24 hr 08/22/19 12:48 Temperature 36.9 C Heart Rate 91 Respiratory 18 Rate Blood Pressure 140/91 H O2 Saturation 98 Oxygen O2 Source Room air - Labs Labs: Laboratory Tests 08/22/19 08/22/19 13:07 13:19 HCG, Quant 6039.00 Urine Color YELLOW Urine Clarity CLEAR Urine pH 5.5 Ur Specific [place] 1.025 Urine Protein NEGATIVE Urine Glucose (UA) NEGATIVE Urine Ketones NEGATIVE Urine Occult Blood LARGE H Urine Nitrite NEGATIVE Urine Bilirubin NEGATIVE Urine Urobilinogen 0.2 (NORMAL) Ur Leukocyte Esterase NEGATIVE Urine RBC TNTC H Urine WBC 0-3 Ur Squamous Epith Cells FEW Squamous Urine Bacteria Rare Urine Mucus Few Strands Ur Microscopic Review INDICATED Urine Culture Comments NOT INDICATED - Rads (name of study) u/s pelvis Radiology: Prelim report reviewed (Impression: 1. Intrauterine gestational sac measuring 5 weeks 3 days with possible small embryo and or gestational sac. Embryonic heart motion not clear red area identified at this time. Findings may reflect normal early intrauterine , however ultimately of uncertain viability. Recommend correlation with serial serum beta hCG, and if appropriate follow-up ultrasound in 7 to 10 days to confirm viability. 2. Small ralph- gestational fluid collection is present. Cervix is closed.), EMP read indepedently, See rad report Procedures - Bedside sono Bedside sono by EMP: With the use of bedside ultrasound the pelvis is imaged and there is a 5-week 6- day gestational sac in the uterus. A pole is not appreciated. PD MEDICAL DECISION MAKING - ED course Complexity details: reviewed results, re-evaluated patient, considered differential, d/w patient ED course: 29-year-old female with a recent history of ovarian ectopic has become again she is having a quantitative hCG rising in the appropriate manner and today she is developed some bleeding we were able to demonstrate an intrauterine both on bedside ultrasound and formal ultrasound done here through the hospital. The patient does not have evidence of urinary tract infection and she is given instructions on threatened miscarriage. Departure - Departure Disposition: Home, Self Care Clinical Impression: Intrauterine , Threatened in early Condition: Stable Instructions: ED Miscarriage Poss Follow-Up: Luis Eduardo Gilmore MD [Primary Care Provider] -
[2019-08-22 13:35] LABS: BILIRUBIN,URINE NEGATIVE (NEGATIVE); GLUCOSE, URINE (UA) NEGATIVE (NEGATIVE); KETONES,URINE (UA) NEGATIVE (NEGATIVE); LEUKOCYTE ESTERASE, URINE NEGATIVE (NEGATIVE); NITRITE,URINE NEGATIVE (NEGATIVE); OCCULT BLOOD,URINE LARGE (NEGATIVE); PH,URINE 5.5 PH (5.0-7.5); PROTEIN,URINE NEGATIVE (NEGATIVE); UROBILINOGEN,URINE 0.2 (NORMAL) E.U./dL (NORMAL)
[2019-08-22 13:38] LABS: CLARITY,URINE CLEAR (CLEAR)
[2019-08-22 13:57] LABS: BACTERIA,URINE Rare /HPF (None Seen); MUCUS,URINE Few Strands; RBC,URINE TNTC /HPF (0-5); SQUAMOUS EPITHELIAL CELL,UR FEW Squamous (<= Few)
--- NOTE | 2019-08-22 15:07 | Ultrasound Report ---
Reason: early vaginal bleeding hx/o ectopic Procedure Date: 08/22/2019 Accession Number: [id number] / [id number] Procedure: US - OB Transvaginal CPT Code: Final Report FULL RESULT: EXAM: FIRST TRIMESTER OBSTETRIC ULTRASOUND (Less than 11 weeks) EXAM DATE: 08/22/2019 02:18 PM. CLINICAL HISTORY: Vaginal bleeding, early , history of ectopic . LMP: 07/06/2019. COMPARISONS: OB FIRST TRIMESTER 04/03/2019 10:04 PM. TECHNIQUE: Transabdominal and transvaginal ultrasound examination with static image documentation. CLINICAL DATES: EGA 6 weeks 5 days with VIDHI 04/11/2020 based on LMP. ASSESSMENT: Gestational Sac: Single intrauterine. Normal shape. Mean gestational sac diameter: 6.7 mm = 5 weeks 3 days (VIDHI 04/20/2020). There is a small structure within the gestational sac measuring up to approximately 3.4 mm, possibly yolk sac or embryo. No embryonic heart motion is clearly identified at this time. Amniotic fluid: Not accurately assessed at this gestational age. Early placenta: Not visible at this gestational age. Other: Small gestational fluid collection measuring 1.4 x 0.5 x 0.4 cm is seen. MATERNAL STRUCTURES: Uterus: Retroverted. Unremarkable. Cervix: Closed. Right Ovary/Adnexa: The ovary measures 3.4 x 3.8 x 2.4 cm, volume 16.2 cc. Probable 1.7 cm corpus luteum. Left Ovary/Adnexa: The ovary measures 3.6 x 2.8 x 2.6 cm, volume 13.7 cc. Unremarkable. Free Fluid: None. Other: None. IMPRESSION: 1. Intrauterine gestational sac measuring 5 weeks 3 days with possible small embryo and/or gestational sac. Embryonic heart motion not clearly identified at this time. Findings may reflect normal early intrauterine , however ultimately of uncertain viability. Recommend correlation with serial serum beta-hCG, and if appropriate follow-up ultrasound in 7-10 days to confirm viability. 2. Small perigestational fluid collection is present. Cervix is closed. RADIA
[2019-08-22 15:19] VITALS: BP 138/94
--- NOTE | 2019-08-22 15:22 | Ultrasound Report ---
Reason: vaginal bleeding early hx/o ectopic Procedure Date: 08/22/2019 Accession Number: [id number] / [id number] Procedure: US - OB First Trimester CPT Code: Final Report FULL RESULT: EXAM: FIRST TRIMESTER OBSTETRIC ULTRASOUND (Less than 11 weeks) ULTRASOUND OB TRANSVAGINAL EXAM DATE: 08/22/2019 02:18 PM. CLINICAL HISTORY: Vaginal bleeding early history of ectopic. LMP: 07/06/2019, EGA 6 weeks 5 days, VIDHI 04/11/2020. COMPARISONS: OB FIRST TRIMESTER 04/03/2019 10:04 PM. TECHNIQUE: Transabdominal and transvaginal ultrasound examination with static image documentation. ASSESSMENT: Gestational Sac: Single intrauterine. Mean gestational sac diameter: 6.7 mm = EGA 5 weeks 3 days, VIDHI 04/20/2020. Embryo: Not definitely seen. Cardiac activity: Not seen. Yolk sac: 2.8 mm. Amniotic fluid: Not accurately assessed at this gestational age. Early placenta: Not visible at this gestational age. Other: Right inferior perigestational bleed suspected, measures 1.4 x 0.5 x 0.4 cm. MATERNAL STRUCTURES: Uterus: Anteverted, retroflexed. Unremarkable. Cervix: Closed. Right Ovary/Adnexa: The ovary measures 3.4 x 3.8 x 2.4 cm, volume 16.2 cc. Unremarkable. Probable corpus luteum in the right ovary. Left Ovary/Adnexa: The ovary measures 3.6 x 2.8 x 2.6 cm, volume 13.7 cc. Unremarkable. Free Fluid: None. IMPRESSION: 1. Single intrauterine gestational sac. The embryo is not yet seen. 2. Mean gestational sac diameter: 6.7 mm = EGA 5 weeks 3 days, VIDHI 04/20/2020. 3. Right inferior perigestational bleed suspected, measures 1.4 x 0.5 x 0.4 cm. RADIA
== END 2019-08-22 15:20 | disposition home or self-care (01) ==
LOC: ED 12:44
DX: O20.0 Threatened abortion (principal); Z3A.01 Less than 8 weeks gestation of pregnancy
CPT/HCPCS: 36415; 76801; 76817; 81001; 81003; 84702; 87086; 99284